=== PATIENT | female | born 1955 | race American Indian/Alaskan Native ===

== ENCOUNTER 2016-07-03 18:09 | Emergency (ER) | payer MEDICAID ==
--- NOTE | 2016-07-03 18:36 | Emergency Department Report ---
Chief Complaint: Chest Pain Stated Complaint: LEFT ARM/CHEST/THROAT PAIN Time Seen by Provider: 07/03/16 18:25 - HPI History of Present Illness: patient is a 60 y/o female with h/p HTN who presents due to left chest pain that radiates to the left shoulder and left arm. patient denies any SOB, patient states the pain has been constant since this morning. - ROS Review of Systems: gen: denies fever, chills pulm: no SOB, no dyspnea on exertion CV: left chest pain, no palpitations, no diaphoresis abd: no abodminal pain ENT: sorethroat - Exam Physical Exam: gen: well developed, well nourished pulm: clear bilateral lung sounds with good airway exchange. CV: regular HR and rhythm abd: no abdominal tenderness Neuro: alert and oriented x 3 MSE screening note: Focused history and physical exam performed. Due to findings the following was ordered:cardiac protocol initiated, EKG no STEMI ED Disposition for MSE Condition: Stable
[2016-07-03 19:11] LABS: Anion Gap 17 mmol/L; BUN/Creatinine Ratio 16.66; Blood Urea Nitrogen 10 mg/dL (7-17); Carbon Dioxide 26 mmol/L (22-30); Chloride 102.6 mmol/L (98-107); Glucose 93 mg/dL (65-100); Potassium 4.2 mmol/L (3.6-5.0); Sodium 141 mmol/L (137-145)
[2016-07-03 19:16] LABS: Basophils % (Auto) 0.7 % (0.0-1.8); Eosinophils % (Auto) 3.4 % (0.0-4.3); Hematocrit 36.4 % (30.3-42.9); Hemoglobin 11.4 gm/dl (10.1-14.3); Mean Corpuscular HGB Conc 31 % (30-34); Mean Corpuscular Volume 77 fl (79-97); Platelet Count 277 K/mm3 (140-440); Red Blood Count 4.75 M/mm3 (3.65-5.03); Red Cell Distribution Width 15.6 % (13.2-15.2)
[2016-07-03 19:24] LABS: Mean Corpuscular Hemoglobin 24 pg (28-32)
[2016-07-03] MEDS ORDERED: APRESOLINE IV ONE (20:26)
[2016-07-03] MEDS ORDERED: ALUM-MAG HYDROX-SIMETH 200-200-20MG/5ML PO ONE (20:26)
[2016-07-03] MEDS ORDERED: TORADOL IV ONE (20:26)
[2016-07-03] MEDS ORDERED: VALIUM IV ONE (20:26)
--- NOTE | 2016-07-03 20:28 | Emergency Department Report ---
ED General Adult HPI - General Chief complaint: Chest Pain Stated complaint: LEFT ARM/CHEST/THROAT PAIN Time Seen by Provider: 07/03/16 20:18 Source: patient, RN notes reviewed Mode of arrival: Ambulatory Limitations: No Limitations - History of Present Illness Initial comments: Primary care Dr.: Dr. Santiago Beverly Gastroenterology: Dr. Carlos Manuel Moyer Past medical history: Obesity, hypertension, obstructive sleep apnea, swallowing difficulty, probable esophageal strictures This is a 60-year-old female. She is previously unknown to me. She presents to the ER with difficulty swallowing. She reports that she swallowed a motrin pill the incorrect way this morning, and that she choked. She reports that she coughs so much that she pulled her left superior lateral chest wall. She also reports that she's been doing a lot of heavy lifting, and has some "spasms" in her left bicep and left forearm. The patient also reports chronic bilateral knee pain, saw her orthopedic pain specialist, and received an injection in her bilateral knees. The patient denies central chest pain, diaphoresis and he and/or different shortness of breath. There is no posterior leg pain. There is no posterior leg swelling. No recent trips greater than 4 hours. No recent hospitalizations. Me, the patient indicates that her left superior anterior chest wall discomfort does not ready to the back, arms or neck, there is no diaphoresis. -: Gradual Location: left, upper extremity Severity scale (0 -10): 7 Quality: aching Consistency: intermittent Improves with: rest Worsens with: eating Associated Symptoms: denies: shortness of breath, syncope - Related Data Previous Rx's Medication Instructions Recorded Last Taken Type Cyclobenzaprine HCl [Flexeril] 10 mg PO TID PRN #10 tablet 03/19/13 01/08/16 Rx HYDROcodone/APAP 5-325 [[place] 1 each PO Q6HR PRN #10 tablet 03/19/13 01/08/16 Rx 5-325 mg TAB] Ibuprofen [Motrin 800 MG tab] 800 mg PO TID #30 tablet 03/19/13 01/08/16 Rx Lisinopril [Zestril TAB] 10 mg PO QDAY #20 tablet 03/14/14 01/08/16 Rx Naproxen Sodium [Aleve TAB] 220 mg PO Q8H PRN #50 tablet 03/14/14 01/08/16 Rx oxyCODONE /ACETAMINOPHEN [Percocet 1 tab PO Q6HR PRN #7 tablet 03/14/14 Rx 5/325 mg] Allergies Allergy/AdvReac Type Severity Reaction Status Date / Time No Known Allergies Allergy Unverified 03/19/13 18:01 ED Review of Systems ROS: Stated complaint: LEFT ARM/CHEST/THROAT PAIN Other details as noted in HPI Constitutional: denies: fever, malaise ENT: throat pain. denies: congestion Respiratory: see HPI, cough Cardiovascular: chest pain (chest wall pain) Gastrointestinal: denies: vomiting Genitourinary: as per HPI Musculoskeletal: arthralgia, myalgia Skin: denies: lesions Neurological: denies: headache Psychiatric: as per HPI ED Past Medical Hx - Past Medical History Previous Medical History?: Yes Hx Hypertension: Yes Hx GERD: Yes Hx Sickle Cell Disease: Yes (trait) Hx Arthritis: Yes Hx Asthma: Yes (severe) Hx COPD: Yes Additional medical history: L shoulder injury. Sleep apnea, emily knee pain, Left rotator cuff needs to be repaired, Emily knee with steroid injections - Surgical History Past Surgical History?: Yes Additional Surgical History: R leg tendon surgery, Hysterectomy - Social History Smoking Status: Never Smoker Substance Use Type: Prescribed - Medications Home Medications: Home Medications Medication Instructions Recorded Confirmed Last Taken Type Cyclobenzaprine HCl [Flexeril] 10 mg PO TID PRN #10 tablet 03/19/13 01/08/16 Rx HYDROcodone/APAP 5-325 [[place] 1 each PO Q6HR PRN #10 tablet 03/19/13 01/08/16 Rx 5-325 mg TAB] Ibuprofen [Motrin 800 MG tab] 800 mg PO TID #30 tablet 03/19/13 01/08/16 Rx Lisinopril [Zestril TAB] 10 mg PO QDAY #20 tablet 03/14/14 01/08/16 Rx Naproxen Sodium [Aleve TAB] 220 mg PO Q8H PRN #50 tablet 03/14/14 01/08/16 Rx oxyCODONE /ACETAMINOPHEN [Percocet 1 tab PO Q6HR PRN #7 tablet 03/14/14 Rx 5/325 mg] ED Physical Exam - General Limitations: No Limitations General appearance: alert, in no apparent distress, obese - Head Head exam: Present: atraumatic, normocephalic - Eye Eye exam: Present: normal appearance, EOMI. Absent: nystagmus - ENT ENT exam: Present: normal exam, normal orophraynx, mucous membranes moist, normal external ear exam - Neck Neck exam: Present: normal inspection, full ROM. Absent: tenderness, meningismus - Respiratory Respiratory exam: Present: normal lung sounds bilaterally, chest wall tenderness. Absent: respiratory distress, wheezes, rales, rhonchi, stridor - Cardiovascular Cardiovascular Exam: Present: regular rate, normal rhythm, normal heart sounds. Absent: bradycardia, tachycardia, irregular rhythm, systolic murmur, diastolic murmur, rubs, gallop - GI/Abdominal GI/Abdominal exam: Present: soft, normal bowel sounds. Absent: distended, tenderness, guarding, rebound, rigid, pulsatile mass - Extremities Exam Extremities exam: Present: normal inspection, full ROM, normal capillary refill. Absent: tenderness, pedal edema, joint swelling, calf tenderness - Back Exam Back exam: Present: normal inspection, full ROM. Absent: tenderness, CVA tenderness (R), CVA tenderness (L), muscle spasm, paraspinal tenderness, vertebral tenderness - Neurological Exam Neurological exam: Present: alert, oriented X3, other (Extraocular movements intact. Tongue midline. No facial droop. Facial sensation intact to light touch in the V1, V2, V3 distribution bilaterally. 5 and 5 strength in 4 extremities.. Sensation is intact to light touch in 4 extremities.). Absent: motor sensory deficit - Psychiatric Psychiatric exam: Present: normal affect, normal mood - Skin Skin exam: Present: warm, dry, intact, normal color. Absent: rash ED Course Vital Signs 07/03/16 07/03/16 07/03/16 18:23 19:49 20:01 Temperature 98.4 F 97.9 F Pulse Rate 78 71 Respiratory 20 17 Rate Blood Pressure 216/96 Blood Pressure 218/81 [Right] O2 Sat by Pulse 98 100 100 Oximetry 07/03/16 07/03/16 07/03/16 21:00 21:20 22:51 Temperature 97.9 F Pulse Rate 74 82 74 Respiratory 18 20 Rate Blood Pressure 216/81 Blood Pressure 225/87 201/74 [Right] O2 Sat by Pulse 97 99 Oximetry - Reevaluation(s) Reevaluation #1: 07/03/16 21:29 Differential diagnosis: Muscle spasm, poorly controlled hypertension, dysphagia , esophageal stricture Assessment and plan: 60-year-old female with dysphagia, difficulty swallowing, left-sided chest wall pain, nonspecific arm spasm. There are no pulmonary embolus or DVT risk factors, low risk by well's criteria, low risk by STEPHEN score , low risk by heart score, EKG morphologically unremarkable 2, troponin negative 2. Elevated blood pressure is appreciated, the patient reports that her blood pressure always gets elevated in the context like this. She is treated symptomatically for pain and spasm, she is given Maalox, she has successfully completed a trial by mouth. I don't believe the patient requires admission to the hospital for acute coronary syndrome risk stratification. She is instructed to continue current outpatient medications, to follow-up with her card stripper and primary care doctor. Return precautions are reviewed. Reevaluation #2: 07/03/16 23:00 patient feels improved. Blood pressure somewhat improved. She is tolerating liquid feeds. Troponins negative 2. Elevated blood pressure is appreciated. It is asymptomatic. As for the [employer] clinical policy on asymptomatic hypertension: Do asymptomatic patients with elevated blood pressures benefit from rapid lowering of their blood pressure? Level A recommendations. None specified. Level B recommendations. (1) Initiating treatment for asymptomatic hypertension in the ED is not necessary when patients have follow-up; (2) Rapidly lowering blood pressure in asymptomatic patients in the ED is unnecessary and may be harmful in some patients; (3) When ED treatment for asymptomatic hypertension is initiated, blood pressure management should attempt to gradually lower blood pressure and should not be expected to be normalized during the initial ED visit. Level C recommendations. None specified. Range of motion is improved. The patient is educated and the need to follow up with her primary care doctor for better blood pressure control. Return precautions were extensively reviewed. ED Medical Decision Making - Lab Data Result diagrams: 07/03/16 18:41 07/03/16 18:41 Vital Signs 07/03/16 07/03/16 07/03/16 18:23 19:49 20:01 Temperature 98.4 F 97.9 F Pulse Rate 78 71 Respiratory 20 17 Rate Blood Pressure 216/96 Blood Pressure 218/81 [Right] O2 Sat by Pulse 98 100 100 Oximetry 07/03/16 21:20 Temperature Pulse Rate 82 Respiratory Rate Blood Pressure 216/81 Blood Pressure [Right] O2 Sat by Pulse Oximetry Lab Results 07/03/16 07/03/16 Range/Units 18:41 18:41 WBC 13.0 H (4.5-11.0) K/mm3 RBC 4.75 (3.65-5.03) M/mm3 Hgb 11.4 (10.1-14.3) gm/dl Hct 36.4 (30.3-42.9) % MCV 77 L (79-97) fl MCH 24 L (28-32) pg MCHC 31 (30-34) % RDW 15.6 H (13.2-15.2) % Plt Count 277 (140-440) K/mm3 Lymph % (Auto) 24.9 (13.4-35.0) % Cowley % (Auto) 5.8 (0.0-7.3) % Eos % (Auto) 3.4 (0.0-4.3) % Baso % (Auto) 0.7 (0.0-1.8) % Lymph # 3.2 (1.2-5.4) K/mm3 Cowley # 0.8 (0.0-0.8) K/mm3 Eos # 0.4 (0.0-0.4) K/mm3 Baso # 0.1 (0.0-0.1) K/mm3 Seg Neutrophils % 65.2 (40.0-70.0) % Seg Neutrophils # 8.5 H (1.8-7.7) K/mm3 Sodium 141 (137-145) mmol/L Potassium 4.2 (3.6-5.0) mmol/L Chloride 102.6 (98-107) mmol/L Carbon Dioxide 26 (22-30) mmol/L Anion Gap 17 mmol/L BUN 10 (7-17) mg/dL Creatinine 0.6 L (0.7-1.2) mg/dL Estimated GFR > 60 ml/min BUN/Creatinine Ratio 16.66 % Glucose 93 (65-100) mg/dL Calcium 9.0 (8.4-10.2) mg/dL Troponin T < 0.010 (0.00-0.029) ng/mL - EKG Data -: EKG Interpreted by [facility] EKG shows normal: sinus rhythm, axis, intervals, QRS complexes, ST-T waves - EKG Data 07/03/16 21:30 EKG #1: Normal sinus, 76 bpm, normal intervals, normal axis, not morphologically consistent with STEMI. EKG #2 demonstrates normal sinus, 72 bpm, normal intervals, normal axis, not morphologically consistent with STEMI. These EKGs are essentially unchanged from prior EKG from 03/19/2013. They're limited by motion artifact. - Radiology Data Radiology results: image reviewed interpreted by me: X-ray the chest is negative for acute disease. Critical care attestation.: If time is entered above; I have spent that time in minutes in the direct care of this critically ill patient, excluding procedure time. ED Disposition Clinical Impression: Dysphagia, Single episode of elevated blood pressure, Left arm pain Disposition: DISCHARGED TO HOME OR SELFCARE Is pt being admited?: No Does the pt Need Aspirin: No Condition: Good Instructions: Chronic Dysphagia (ED), Hypertension (ED) Additional Instructions: Discharge diagnosis: Elevated blood pressure, left arm pain, history of dysphagia Continue current outpatient medications. Follow-up with your primary care doctor, portrait studio photographer, within the next 3-5 days for further evaluation for elevated blood pressure. Long-term complications of hypertension and elevated blood pressure includes stroke, heart attack, disability, , paralysis, permanent loss of quality of life. Some of the local cardiologists include Dr. Nuñez and and Dr. Desai Follow-up with your card stripper within the next 2 weeks. Avoid heavy and spicy foods. Return to the ER right away with few pain, worsened pain, migration of pain, fevers or chills, nausea or vomiting, inability to tolerate liquid feeds, new, worsening or different symptoms. Referrals: PRIMARY CARE, [Referring] - 3-5 Days JOSE CARLOS NUÑEZ MD [Staff Physician] - 3-5 Days IQRA MACDONALD MD [Staff Physician] - 3-5 Days HOWARD WATTERS MD [Staff Physician] - 3-5 Days SANTIAGO BEVERLY MD [Primary Care Provider] - 3-5 Days
[2016-07-03 22:53] VITALS: BP 201/74
--- NOTE | 2016-07-04 08:19 | XRay Report ---
Chest 2 views. History: Chest pain. Findings: The heart is borderline in size with normal pulmonary vascularity. Lungs are clear. There is no pleural fluid. The bony structures are normal. Impression: No acute findings.
== END 2016-07-03 23:00 | disposition home or self-care (01) ==
LOC: ED 18:09
DX: R13.10 Dysphagia, unspecified (principal); M79.602 Pain in left arm; I10 Essential (primary) hypertension; K21.9 Gastro-esophageal reflux disease without esophagitis; M19.90 Unspecified osteoarthritis, unspecified site; J45.909 Unspecified asthma, uncomplicated; J44.9 Chronic obstructive pulmonary disease, unspecified; Z90.710 Acquired absence of both cervix and uterus
CPT/HCPCS: 36415; 71020; 80048; 84484; 85025; 93005; 93010; 96374; 96375; 99285; J0360; J1885; J3360

== ENCOUNTER 2018-04-22 10:21 | Emergency (ER) | payer MEDICAID ==
[2018-04-22 10:33] VITALS: BP 167/57
--- NOTE | 2018-04-22 11:40 | XRay Report ---
RIGHT FINGERS, 3 VIEWS History: Pain, possible foreign body in the index finger. Findings: Bone mineralization is normal. No acute osseous findings or joint pathology is detected. No radiopaque foreign body is identified in the index finger. Impression: No abnormality identified.
--- NOTE | 2018-04-22 12:00 | Emergency Department Report ---
ED Extremity Problem HPI - General Chief complaint: Extremity Problem,Nontraumatic Stated complaint: NERVE PAIN Time Seen by Provider: 04/22/18 11:11 Source: patient Mode of arrival: Ambulatory Limitations: No Limitations - History of Present Illness Initial comments: Patient is a 62-year-old black female with past medical history of diabetes who believes she had a foreign body of the skin of her right index finger approximately month ago. Patient used some sterilized SEWING needle to try to incise this area. Patient feels though she did not get out the foreign body. Patient states his skin is now healed and closed however she has pain with swelling around this area. Patient denies any fevers chills. Patient states the pain is 6 out of 10 in severity and is worse when she has direct contact of this area. Severity scale (0 -10): 6 - Related Data Previous Rx's Medication Instructions Recorded Last Taken Type Cyclobenzaprine HCl [Flexeril] 10 mg PO TID PRN #10 tablet 03/19/13 01/08/16 Rx HYDROcodone/APAP 5-325 [[place] 1 each PO Q6HR PRN #10 tablet 03/19/13 01/08/16 Rx 5-325 mg TAB] Ibuprofen [Motrin 800 MG tab] 800 mg PO TID #30 tablet 03/19/13 01/08/16 Rx Lisinopril [Zestril TAB] 10 mg PO QDAY #20 tablet 03/14/14 01/08/16 Rx Naproxen Sodium [Aleve TAB] 220 mg PO Q8H PRN #50 tablet 03/14/14 01/08/16 Rx oxyCODONE /ACETAMINOPHEN [Percocet 1 tab PO Q6HR PRN #7 tablet 03/14/14 01/08/16 Rx 5/325 mg] Clindamycin [Clindamycin CAP] 300 mg PO Q8H 7 Days cap 04/22/18 Unknown Rx HYDROcodone/APAP 5-325 [[place] 1 each PO Q4HR PRN #12 tablet 04/22/18 Unknown Rx 5/325] Allergies Allergy/AdvReac Type Severity Reaction Status Date / Time No Known Allergies Allergy Unverified 04/22/18 10:29 ED Review of Systems ROS: Stated complaint: NERVE PAIN Other details as noted in HPI Comment: All other systems reviewed and negative ED Past Medical Hx - Past Medical History Hx Hypertension: Yes Hx GERD: Yes Hx Sickle Cell Disease: Yes (trait) Hx Arthritis: Yes Hx Asthma: Yes (severe) Hx COPD: Yes Additional medical history: L shoulder injury. Sleep apnea, marcus knee pain, Left rotator cuff needs to be repaired, Marcus knee with steroid injections - Surgical History Additional Surgical History: R leg tendon surgery, Hysterectomy - Social History Smoking Status: Never Smoker Substance Use Type: None - Medications Home Medications: Home Medications Medication Instructions Recorded Confirmed Last Taken Type Cyclobenzaprine HCl [Flexeril] 10 mg PO TID PRN #10 tablet 03/19/13 01/08/16 Rx HYDROcodone/APAP 5-325 [[place] 1 each PO Q6HR PRN #10 tablet 03/19/13 01/08/16 Rx 5-325 mg TAB] Ibuprofen [Motrin 800 MG tab] 800 mg PO TID #30 tablet 03/19/13 01/08/16 Rx Lisinopril [Zestril TAB] 10 mg PO QDAY #20 tablet 03/14/14 01/08/16 Rx Naproxen Sodium [Aleve TAB] 220 mg PO Q8H PRN #50 tablet 03/14/14 01/08/16 Rx oxyCODONE /ACETAMINOPHEN [Percocet 1 tab PO Q6HR PRN #7 tablet 03/14/14 01/08/16 Rx 5/325 mg] Clindamycin [Clindamycin CAP] 300 mg PO Q8H 7 Days cap 04/22/18 Unknown Rx HYDROcodone/APAP 5-325 [[place] 1 each PO Q4HR PRN #12 tablet 04/22/18 Unknown Rx 5/325] ED Physical Exam - General Limitations: No Limitations General appearance: alert, in no apparent distress - Head Head exam: Present: atraumatic, normocephalic - Eye Eye exam: Present: normal appearance - ENT ENT exam: Present: mucous membranes moist - Neck Neck exam: Present: normal inspection - Respiratory Respiratory exam: Present: normal lung sounds bilaterally. Absent: respiratory distress - Cardiovascular Cardiovascular Exam: Present: regular rate, normal rhythm. Absent: systolic murmur, diastolic murmur, rubs, gallop - GI/Abdominal GI/Abdominal exam: Present: soft, normal bowel sounds - Extremities Exam Extremities exam: Present: normal inspection, tenderness (patient has some mild erythematous swelling to the right index finger distal tip.) - Back Exam Back exam: Present: normal inspection - Neurological Exam Neurological exam: Present: alert, oriented X3 - Psychiatric Psychiatric exam: Present: normal affect, normal mood - Skin Skin exam: Present: warm, dry, intact, normal color. Absent: rash ED Course Vital Signs 04/22/18 10:31 Temperature 97.4 F L Pulse Rate 81 Respiratory 16 Rate Blood Pressure 167/57 [Right] O2 Sat by Pulse 97 Oximetry ED Medical Decision Making - Radiology Data X-ray was negative for radiopaque foreign body. - Medical Decision Making Patient started on antibiotics for a possible early cellulitis secondary to poor healing after the patient tried to remove the foreign body. Patient no radiopaque foreign bodies are found on x-ray here. Patient started on antibiotics and pain meds. Critical care attestation.: If time is entered above; I have spent that time in minutes in the direct care of this critically ill patient, excluding procedure time. ED Disposition Clinical Impression: Cellulitis, finger Qualifiers: Laterality: right Qualified Code(s): L03.011 - Cellulitis of right finger Disposition: DC-01 TO HOME OR SELFCARE Is pt being admited?: No Does the pt Need Aspirin: No Condition: Stable Instructions: Cellulitis (ED) Referrals: DARIUS WALSH MD [Staff Physician] - 3-5 Days Time of Disposition: 12:00
== END 2018-04-22 12:04 | disposition home or self-care (01) ==
LOC: ED 10:21
DX: L03.011 Cellulitis of right finger (principal); I10 Essential (primary) hypertension; K21.9 Gastro-esophageal reflux disease without esophagitis; M19.90 Unspecified osteoarthritis, unspecified site; J44.9 Chronic obstructive pulmonary disease, unspecified; D57.3 Sickle-cell trait; Z90.710 Acquired absence of both cervix and uterus; Z79.899 Other long term (current) drug therapy
CPT/HCPCS: 99283

== ENCOUNTER 2018-07-29 17:42 | Emergency (ER) | payer MEDICAID ==
--- NOTE | 2018-07-29 18:20 | Emergency Department Report ---
Chief Complaint: Urogenital-Female Stated Complaint: CANT URINATE Time Seen by Provider: 07/29/18 18:17 - HPI History of Present Illness: This is a 62 y.o. F. that presents to the ER with pelvic pressure, urinary frequency, and urgency. PMH: DM, neuropathy, HTN - Exam Vital Signs: Vital Signs 07/29/18 18:16 Temperature 98.0 F Pulse Rate 67 Respiratory 20 Rate Blood Pressure 133/64 O2 Sat by Pulse 98 Oximetry MSE screening note: Focused history and physical exam performed. Due to findings the following was ordered: This initial assessment/diagnostic orders/clinical plan/treatment(s) is/are subject to change based on patient's health status, clinical progression and re- assessment by fellow clinical providers in the ED. Further treatment and workup at subsequent clinical providers discretion. Patient/guardians urged not to elope from the ED as their condition may be serious if not clinically assessed and managed. Initial orders include: 1- Patient sent to [facility] for further evaluation and treatment 2- Urinalysis ED Disposition for MSE Condition: Stable
[2018-07-29 18:55] LABS: Bilirubin,Urine NEG (Negative); Blood,Urine NEG (Negative); Color,Urine Yellow (Yellow); Mucus,Urine FEW /HPF; Protein,Urine <15 mg/dL mg/dL (Negative); Urobilinogen,Urine < 2.0 mg/dL (<2.0)
[2018-07-29] MEDS ORDERED: MACROBID PO ONE (22:36)
[2018-07-29] MEDS ORDERED: TYLENOL PO ONE (22:36)
[2018-07-29] MEDS ORDERED: PYRIDIUM PO ONE (22:39)
--- NOTE | 2018-07-29 22:40 | Emergency Department Report ---
ED Female HPI - General Chief complaint: Urogenital-Female Stated complaint: CANT URINATE Time Seen by Provider: 07/29/18 18:17 Source: patient Mode of arrival: Ambulatory Limitations: No Limitations - History of Present Illness Initial comments: Procedure 62-year-old -[place] female with history hypertension diabetes who presents for urinary retention placed urination as I have to P against urinate christa does note she also has no back pain no nausea vomiting no history of renal stones shortness of breath no chest pain MD Complaint: dysuria Onset/Timin -: days(s) Radiation: suprapubic Severity: moderate Severity scale (0 -10): 4 Quality: cramping Consistency: constant Improves with: none Worsens with: urination Are you Now?: No - Related Data Sexually active: No Previous Rx's Medication Instructions Recorded Last Taken Type Cyclobenzaprine HCl [Flexeril] 10 mg PO TID PRN #10 tablet 03/19/13 01/08/16 Rx HYDROcodone/APAP 5-325 [[place] 1 each PO Q6HR PRN #10 tablet 03/19/13 01/08/16 Rx 5-325 mg TAB] Ibuprofen [Motrin 800 MG tab] 800 mg PO TID #30 tablet 03/19/13 01/08/16 Rx Lisinopril [Zestril TAB] 10 mg PO QDAY #20 tablet 03/14/14 01/08/16 Rx Naproxen Sodium [Aleve TAB] 220 mg PO Q8H PRN #50 tablet 03/14/14 01/08/16 Rx oxyCODONE /ACETAMINOPHEN [Percocet 1 tab PO Q6HR PRN #7 tablet 03/14/14 01/08/16 Rx 5/325 mg] Clindamycin [Clindamycin CAP] 300 mg PO Q8H 7 Days cap 04/22/18 Unknown Rx HYDROcodone/APAP 5-325 [[place] 1 each PO Q4HR PRN #12 tablet 04/22/18 Unknown Rx 5/325] Acetaminophen 60 mg PO Q6H PRN #30 capsule 07/29/18 Unknown Rx Nitrofurantoin [place]/M-Cryst 100 mg PO BID 7 Days #14 capsule 07/29/18 Unknown Rx [Macrobid CAP] Phenazopyridine [Pyridium] 100 mg PO TID 2 Days #6 tab 07/29/18 Unknown Rx Allergies Allergy/AdvReac Type Severity Reaction Status Date / Time No Known Allergies Allergy Verified 07/29/18 17:46 ED Review of Systems ROS: Stated complaint: CANT URINATE Other details as noted in HPI Constitutional: denies: chills, fever Eyes: denies: eye pain, eye discharge, vision change ENT: denies: ear pain, throat pain Respiratory: denies: cough, shortness of breath, wheezing Cardiovascular: denies: chest pain, palpitations Endocrine: no symptoms reported Gastrointestinal: abdominal pain (superpubic pressure cramping ). denies: nausea, vomiting, diarrhea, constipation, hematemesis, melena, hematochezia Genitourinary: urgency, dysuria, frequency. denies: hematuria, discharge, abnormal menses, dyspareunia Musculoskeletal: denies: back pain, joint swelling, arthralgia Skin: denies: rash, lesions Neurological: denies: headache, weakness, paresthesias Psychiatric: denies: anxiety, depression Hematological/Lymphatic: denies: easy bleeding, easy bruising ED Past Medical Hx - Past Medical History Hx Hypertension: Yes Hx GERD: Yes Hx Sickle Cell Disease: Yes (trait) Hx Arthritis: Yes Hx Asthma: Yes Hx COPD: Yes Additional medical history: sleep apnea, neuropathy - Surgical History Additional Surgical History: R leg tendon surgery, Hysterectomy - Social History Smoking Status: Never Smoker Substance Use Type: None - Medications Home Medications: Home Medications Medication Instructions Recorded Confirmed Last Taken Type Cyclobenzaprine HCl [Flexeril] 10 mg PO TID PRN #10 tablet 03/19/13 01/08/16 Rx HYDROcodone/APAP 5-325 [[place] 1 each PO Q6HR PRN #10 tablet 03/19/13 01/08/16 Rx 5-325 mg TAB] Ibuprofen [Motrin 800 MG tab] 800 mg PO TID #30 tablet 03/19/13 01/08/16 Rx Lisinopril [Zestril TAB] 10 mg PO QDAY #20 tablet 03/14/14 01/08/16 Rx Naproxen Sodium [Aleve TAB] 220 mg PO Q8H PRN #50 tablet 03/14/14 01/08/16 Rx oxyCODONE /ACETAMINOPHEN [Percocet 1 tab PO Q6HR PRN #7 tablet 03/14/14 01/08/16 Rx 5/325 mg] Clindamycin [Clindamycin CAP] 300 mg PO Q8H 7 Days cap 04/22/18 Unknown Rx HYDROcodone/APAP 5-325 [[place] 1 each PO Q4HR PRN #12 tablet 04/22/18 Unknown Rx 5/325] Acetaminophen 60 mg PO Q6H PRN #30 capsule 07/29/18 Unknown Rx Nitrofurantoin [place]/M-Cryst 100 mg PO BID 7 Days #14 capsule 07/29/18 Unknown Rx [Macrobid CAP] Phenazopyridine [Pyridium] 100 mg PO TID 2 Days #6 tab 07/29/18 Unknown Rx ED Physical Exam - General Limitations: No Limitations General appearance: alert, in no apparent distress - Head Head exam: Present: atraumatic, normocephalic - Eye Eye exam: Present: normal appearance, PERRL, EOMI Pupils: Present: normal accommodation - ENT ENT exam: Present: mucous membranes moist - Neck Neck exam: Present: normal inspection, full ROM. Absent: lymphadenopathy, thyromegaly - Respiratory Respiratory exam: Present: normal lung sounds bilaterally. Absent: respiratory distress, wheezes, stridor, chest wall tenderness - Cardiovascular Cardiovascular Exam: Present: regular rate, normal rhythm, normal heart sounds. Absent: systolic murmur, diastolic murmur, rubs, gallop - GI/Abdominal GI/Abdominal exam: Present: soft, normal bowel sounds. Absent: distended, tenderness, guarding, rebound, rigid, bruit, hernia - Rectal Rectal exam: Present: deferred - Extremities Exam Extremities exam: Present: normal inspection. Absent: tenderness - Back Exam Back exam: Present: normal inspection, full ROM. Absent: tenderness, CVA tenderness (R), CVA tenderness (L), muscle spasm, rash noted - Neurological Exam Neurological exam: Present: alert, oriented X3, CN II-XII intact, normal gait - Psychiatric Psychiatric exam: Present: normal affect, normal mood - Skin Skin exam: Present: warm, dry, intact, normal color. Absent: rash ED Course Vital Signs 07/29/18 18:16 Temperature 98.0 F Pulse Rate 67 Respiratory 20 Rate Blood Pressure 133/64 O2 Sat by Pulse 98 Oximetry ED Medical Decision Making - Radiology Data Radiology results: report reviewed, image reviewed Ordering Physician: LORRIE RUBIO NP Date of Service: 07/29/18 Procedure(s): CT abdomen pelvis wo con Accession Number(s): [id number] cc: LORRIE RUBIO NP PROCEDURE: CT abdomen and pelvis without contrast. TECHNIQUE: Computerized axial tomography of the abdomen and pelvis was performed without intravenous contrast. This study is performed without intravascular contrast material and its sensitivity for abdominal and pelvic pathology, including neoplasms, inflammation, abscess, free fluid, thrombosis, arterial dissection and infarction, is reduced compared with a contrast enhanced study. CT DOSE LENGTH PRODUCT: 1580.8 mGycm HISTORY: Abdominal pain. COMPARISONS: None. FINDINGS: The lung bases are clear. There are no pleural effusions. The heart size is normal. The liver, pancreas and spleen are grossly normal. The gallbladder is present. There is no biliary dilatation. The adrenal glands are not enlarged. Both kidneys appear normal in size and configuration. The abdominal aorta has a normal caliber. There is no retroperitoneal adenopathy. The unopacified gastrointestinal tract is unremarkable. A normal appendix is visible. The bladder, uterus and adnexal regions are unremarkable. The regional skeleton appears intact. There is osteoarthritis involving the facet joints at L4-5. There is mild grade 1 spondylolisthesis at this level. There is a very small umbilical hernia consisting of fat. IMPRESSION: Facet joint arthritis at L4-5 with grade 1 spondylolisthesis. Small umbilical hernia containing fat. No evidence of acute disease in the abdomen or pelvis. This document is electronically signed by Omar Granger MD., Jul 29 2018 11:24:37 PM ET Transcribed By: MRM Dictated By: OMAR GRANGER MD Electronically Authenticated By: OMAR GRANGER MD Signed Date/Time: 07/29/182325 DD/ 01 TD/TT: 07/29/182301 - Medical Decision Making CT abd pelvis: no renal stones, bladder normal, noted for small umbilcal hernia, and L spine spondylithiasis UA: pos for leuk and wbc plan, tx for UTI ,plan: macrobid , pyridium , tylenol prn pain follow up with pcp in 2-3 days return to ed if symptoms worsen, pt verbalized agreement and understanding of discharge plan. Critical care attestation.: If time is entered above; I have spent that time in minutes in the direct care of this critically ill patient, excluding procedure time. ED Disposition Clinical Impression: Flank pain UTI (urinary tract infection) Qualifiers: Urinary tract infection type: acute cystitis Hematuria presence: without hematuria Qualified Code(s): N30.00 - Acute cystitis without hematuria Disposition: TO HOME OR SELFCARE Is pt being admited?: No Does the pt Need Aspirin: No Condition: Stable Instructions: Urinary Tract Infection in Women (ED), Flank Pain (ED), Phenazopyridine (By mouth) Prescriptions: Acetaminophen 60 mg PO Q6H PRN #30 capsule PRN Reason: pain Nitrofurantoin [place]/M-Cryst [Macrobid CAP] 100 mg PO BID 7 Days #14 capsule Phenazopyridine [Pyridium] 100 mg PO TID 2 Days #6 tab Referrals: SANTIAGO ESPARZA MD [Primary Care Provider] - 2-3 Days Forms: Work/School Release Form(ED) Time of Disposition: 23:58
--- NOTE | 2018-07-29 23:26 | Cat Scan Report ---
PROCEDURE: CT abdomen and pelvis without contrast. TECHNIQUE: Computerized axial tomography of the abdomen and pelvis was performed without intravenous contrast. This study is performed without intravascular contrast material and its sensitivity for ab dominal and pelvic pathology, including neoplasms, inflammation, abscess, free fluid, thrombosis, art erial dissection and infarction, is reduced compared with a contrast enhanced study. CT DOSE LENGTH PRODUCT: 1580.8 mGycm HISTORY: Abdominal pain. COMPARISONS: None. FINDINGS: The lung bases are clear. There are no pleural effusions. The heart size is normal. The liver, pancre as and spleen are grossly normal. The gallbladder is present. There is no biliary dilatation. The adr enal glands are not enlarged. Both kidneys appear normal in size and configuration. The abdominal aor ta has a normal caliber. There is no retroperitoneal adenopathy. The unopacified gastrointestinal tra ct is unremarkable. A normal appendix is visible. The bladder, uterus and adnexal regions are unremar kable. The regional skeleton appears intact. There is osteoarthritis involving the facet joints at L4 -5. There is mild grade 1 spondylolisthesis at this level. There is a very small umbilical hernia con sisting of fat. IMPRESSION: Facet joint arthritis at L4-5 with grade 1 spondylolisthesis. Small umbilical hernia con taining fat. No evidence of acute disease in the abdomen or pelvis. This document is electronically signed by Omar Rader MD., Jul 29 2018 11:24:37 PM ET
[2018-07-30 00:53] VITALS: BP 164/60
== END 2018-07-30 00:30 | disposition home or self-care (01) ==
LOC: ED 17:42
DX: N39.0 Urinary tract infection, site not specified (principal); K42.9 Umbilical hernia without obstruction or gangrene; I10 Essential (primary) hypertension; K21.9 Gastro-esophageal reflux disease without esophagitis; J44.9 Chronic obstructive pulmonary disease, unspecified; E11.40 Type 2 diabetes mellitus with diabetic neuropathy, unspecified; M19.90 Unspecified osteoarthritis, unspecified site; G47.30 Sleep apnea, unspecified; Z90.710 Acquired absence of both cervix and uterus
CPT/HCPCS: 74176; 81001; 99284

== ENCOUNTER 2018-09-09 02:12 | Emergency (ER) | payer MEDICAID ==
[2018-09-09] MEDS ORDERED: TYLENOL PO ONE (04:28)
[2018-09-09] MEDS ORDERED: TORADOL IV ONE (04:29)
--- NOTE | 2018-09-09 04:56 | XRay Report ---
CHEST PA AND LATERAL VIEWS INDICATION: MAIN: PT SD FLU LIKE SYMPTOMS X1-2 DAYS..JTS. COMPARISON: 07/03/2016. FINDINGS: Support devices: None. Heart: Within normal limits. Lungs/Pleura: No consolidation is seen. There is mild peribronchial cuffing which can be seen in the setting of lower airways disease. No pleural abnormality. IMPRESSION: 1. Mild peribronchial cuffing in both lungs can be seen in the setting of lower airways disease/bronc hiolitis. No consolidation. Signer Name: Daniel Sampson MD Signed: 09/09/2018 4:52 AM Workstation Name: [id number]
[2018-09-09 05:20] LABS: Basophils # (Auto) 0.1 K/mm3 (0.0-0.1); Basophils % (Auto) 0.4 % (0.0-1.8); Eosinophils # (Auto) 0.1 K/mm3 (0.0-0.4); Eosinophils % (Auto) 0.5 % (0.0-4.3); Hematocrit 38.2 % (30.3-42.9); Hemoglobin 12.2 gm/dl (10.1-14.3); Lymphocytes # (Auto) 1.3 K/mm3 (1.2-5.4); Lymphocytes % (Auto) 7.8 % (13.4-35.0); Mean Corpuscular HGB Conc 32 % (30-34); Mean Corpuscular Volume 76 fl (79-97); Monocytes # (Auto) 0.8 K/mm3 (0.0-0.8); Monocytes % (Auto) 4.8 % (0.0-7.3); Platelet Count 264 K/mm3 (140-440); Red Blood Count 5.01 M/mm3 (3.65-5.03); Red Cell Distribution Width 15.4 % (13.2-15.2)
[2018-09-09] MEDS ORDERED: NACL 0.9% 1000 ML 1,000 ML IV ONE (05:22)
[2018-09-09] MEDS ORDERED: ZITHROMAX PO ONE (05:36)
[2018-09-09] MEDS ORDERED: ROCEPHIN/NS 1 GM/50 ML 1 GM/50 ML BAG IV ONE (05:36)
[2018-09-09 05:47] LABS: Alanine Aminotransferase 13 units/L (7-56); Albumin 4.3 g/dL (3.9-5); BUN/Creatinine Ratio 15; Blood Urea Nitrogen 15 mg/dL (7-17); Calcium 9.4 mg/dL (8.4-10.2); Hemolysis Index 6
[2018-09-09 06:00] LABS: Bilirubin,Urine NEG (Negative); Blood,Urine MOD (Negative); Color,Urine Yellow (Yellow); Mucus,Urine FEW /HPF; Urobilinogen,Urine < 2.0 mg/dL (<2.0); WBC,Urine < 1.0 /HPF (0.0-6.0)
--- NOTE | 2018-09-09 06:12 | Emergency Department Report ---
ED General Adult HPI - General Chief complaint: Pain General Stated complaint: PAIN ALL OVER BODY/FEVER Time Seen by Provider: 09/09/18 04:15 Source: patient Mode of arrival: Wheelchair Limitations: No Limitations - History of Present Illness Initial comments: Patient is a 62-year-old -[place] female with a history of COPD, hypertension, chronic osteoarthritis, and GERD who presents to the ED, in no acute onset persistent diarrhea and diffuse body aches and pains with chills for the last 2 days. Patient denies dizziness, fever, sore throat, abdominal pain, chest pain, cough, sore throat, change in vision, shortness of breath, dysuria, urinary frequency and urgency, headache, neck pain or change in vision. Patient states that she has been taking [id number] Tylenol and/or ibuprofen as needed with no relief. MD Complaint: diffuse body aches, chills, flu like symptoms -: Gradual, days(s) (2) Location: head Radiation: non-radiation Severity scale (0 -10): 10 Quality: aching, sharp Consistency: constant Improves with: none Worsens with: none Associated Symptoms: denies other symptoms. denies: confusion, chest pain, cough, diaphoresis, fever/chills, headaches, loss of appetite, malaise, nausea/vomiting, shortness of breath, syncope, weakness Treatments Prior to Arrival: none, NSAID - Related Data Previous Rx's Medication Instructions Recorded Last Taken Type Cyclobenzaprine HCl [Flexeril] 10 mg PO TID PRN #10 tablet 03/19/13 01/08/16 Rx HYDROcodone/APAP 5-325 [[place] 1 each PO Q6HR PRN #10 tablet 03/19/13 01/08/16 Rx 5-325 mg TAB] Ibuprofen [Motrin 800 MG tab] 800 mg PO TID #30 tablet 03/19/13 01/08/16 Rx Lisinopril [Zestril TAB] 10 mg PO QDAY #20 tablet 03/14/14 01/08/16 Rx Naproxen Sodium [Aleve TAB] 220 mg PO Q8H PRN #50 tablet 03/14/14 01/08/16 Rx oxyCODONE /ACETAMINOPHEN [Percocet 1 tab PO Q6HR PRN #7 tablet 01/11/15 11/06/16 Rx 5/325 mg] Clindamycin [Clindamycin CAP] 300 mg PO Q8H 7 Days cap 04/22/18 Unknown Rx HYDROcodone/APAP 5-325 [[place] 1 each PO Q4HR PRN #12 tablet 04/22/18 Unknown Rx 5/325] Acetaminophen 60 mg PO Q6H PRN #30 capsule 07/29/18 Unknown Rx Nitrofurantoin [place]/M-Cryst 100 mg PO BID 7 Days #14 capsule 07/29/18 Unknown Rx [Macrobid CAP] Phenazopyridine [Pyridium] 100 mg PO TID 2 Days #6 tab 07/29/18 Unknown Rx Amoxicillin/Potassium Clav 1 each PO Q12H #20 tablet 09/09/18 Unknown Rx [Augmentin 875-125 Tablet] Ibuprofen [Motrin] 800 mg PO Q8HR PRN #20 tablet 09/09/18 Unknown Rx Ondansetron [Zofran Odt] 4 mg PO Q6HR PRN #15 tab.rapdis 09/09/18 Unknown Rx Allergies Allergy/AdvReac Type Severity Reaction Status Date / Time No Known Allergies Allergy Verified 07/29/18 17:46 ED Review of Systems ROS: Stated complaint: PAIN ALL OVER BODY/FEVER Other details as noted in HPI Constitutional: chills, malaise, weakness. denies: fever Eyes: denies: eye pain, eye discharge, vision change ENT: denies: ear pain, throat pain Respiratory: denies: cough, shortness of breath, wheezing Cardiovascular: denies: chest pain, palpitations, dyspnea on exertion, edema, syncope, paroxysmal nocturnal dyspnea Endocrine: no symptoms reported. denies: see HPI, excessive sweating, increased hunger, increased urine, unexplained weight gain, unexplained weight loss Gastrointestinal: denies: abdominal pain, nausea, diarrhea Genitourinary: denies: urgency, dysuria, discharge Musculoskeletal: back pain, arthralgia, myalgia. denies: joint swelling Skin: denies: rash, lesions Neurological: denies: headache, weakness, paresthesias Psychiatric: denies: anxiety, depression Hematological/Lymphatic: denies: easy bleeding, easy bruising ED Past Medical Hx - Past Medical History Previous Medical History?: Yes Hx Hypertension: Yes Hx GERD: Yes Hx Sickle Cell Disease: Yes (trait) Hx Arthritis: Yes Hx Asthma: Yes Hx COPD: Yes Additional medical history: sleep apnea, neuropathy - Surgical History Past Surgical History?: Yes Additional Surgical History: R leg tendon surgery, Hysterectomy - Social History Smoking Status: Never Smoker Substance Use Type: None - Medications Home Medications: Home Medications Medication Instructions Recorded Confirmed Last Taken Type Cyclobenzaprine HCl [Flexeril] 10 mg PO TID PRN #10 tablet 03/19/13 01/08/16 Rx HYDROcodone/APAP 5-325 [[place] 1 each PO Q6HR PRN #10 tablet 03/19/13 01/08/16 Rx 5-325 mg TAB] Ibuprofen [Motrin 800 MG tab] 800 mg PO TID #30 tablet 03/19/13 01/08/16 Rx Lisinopril [Zestril TAB] 10 mg PO QDAY #20 tablet 03/14/14 01/08/16 Rx Naproxen Sodium [Aleve TAB] 220 mg PO Q8H PRN #50 tablet 03/14/14 01/08/16 Rx oxyCODONE /ACETAMINOPHEN [Percocet 1 tab PO Q6HR PRN #7 tablet 03/14/14 01/08/16 Rx 5/325 mg] Clindamycin [Clindamycin CAP] 300 mg PO Q8H 7 Days cap 04/22/18 Unknown Rx HYDROcodone/APAP 5-325 [[place] 1 each PO Q4HR PRN #12 tablet 04/22/18 Unknown Rx 5/325] Acetaminophen 60 mg PO Q6H PRN #30 capsule 07/29/18 Unknown Rx Nitrofurantoin [place]/M-Cryst 100 mg PO BID 7 Days #14 capsule 07/29/18 Unknown Rx [Macrobid CAP] Phenazopyridine [Pyridium] 100 mg PO TID 2 Days #6 tab 07/29/18 Unknown Rx Amoxicillin/Potassium Clav 1 each PO Q12H #20 tablet 09/09/18 Unknown Rx [Augmentin 875-125 Tablet] Ibuprofen [Motrin] 800 mg PO Q8HR PRN #20 tablet 09/09/18 Unknown Rx Ondansetron [Zofran Odt] 4 mg PO Q6HR PRN #15 tab.rapdis 09/09/18 Unknown Rx ED Physical Exam - General Limitations: No Limitations General appearance: alert, in no apparent distress - Head Head exam: Present: atraumatic, normocephalic, normal inspection - Eye Eye exam: Present: normal appearance, PERRL, EOMI. Absent: scleral icterus Pupils: Present: normal accommodation - ENT ENT exam: Present: normal exam, normal orophraynx, mucous membranes moist, TM's normal bilaterally, normal external ear exam - Neck Neck exam: Present: normal inspection, full ROM - Respiratory Respiratory exam: Present: normal lung sounds bilaterally. Absent: respiratory distress, wheezes, rales, rhonchi, stridor, chest wall tenderness, accessory muscle use, decreased breath sounds, prolonged expiratory - Cardiovascular Cardiovascular Exam: Present: normal rhythm, tachycardia, normal heart sounds. Absent: systolic murmur, diastolic murmur, rubs, gallop - GI/Abdominal GI/Abdominal exam: Present: soft, normal bowel sounds. Absent: distended, tenderness, guarding, hyperactive bowel sounds, hypoactive bowel sounds, organ omegaly, mass, bruit, pulsatile mass - Rectal Rectal exam: Present: deferred - Extremities Exam Extremities exam: Present: normal inspection, full ROM, normal capillary refill - Back Exam Back exam: Present: normal inspection, full ROM, tenderness, muscle spasm. Absent: CVA tenderness (L) - Neurological Exam Neurological exam: Present: alert, oriented X3, CN II-XII intact, normal gait, reflexes normal - Psychiatric Psychiatric exam: Present: normal affect, normal mood - Skin Skin exam: Present: warm, dry, intact, normal color. Absent: rash ED Course Vital Signs 09/09/18 09/09/18 02:18 05:10 Temperature 98.3 F Pulse Rate 102 H Respiratory 20 20 Rate Blood Pressure 174/66 O2 Sat by Pulse 97 Oximetry - Reevaluation(s) Reevaluation #1: 09/09/18 06:16 Patient is alert and oriented 3 and is not in distress but tachycardic in triage and appears ill. Labs were drawn and chest x-ray ordered and urinalysis also ordered. Patient was treated for pain in the ED, and chest x-ray shows mild bronchial cuffing in both lungs which is slightly due to lower airway disease or bronchiolitis. No consolidation. Lab test results were reviewed and shows acute leukocytosis of 16,300. Urinalysis unremarkable, and a rapid influenza test is negative. Other lab test results were unremarkable. Patient was empirically treated for community acquired pneumonia based on the history and physical exam findings as well as clinical impression of the patient. Patient was discharged home on medications and advised to drink plenty of fluids and take medications, and follow-up in her primary care physician in 5-7 days for reevaluation or return to the ED immediately if symptoms get worse. 09/09/18 06:17 09/09/18 06:18 ED Medical Decision Making - Lab Data Result diagrams: 09/09/18 05:02 09/09/18 05:02 - Radiology Data Radiology results: report reviewed, image reviewed Chest x-ray shows mild bronchial cuffing in both lungs which is slightly due to lower airway disease or bronchiolitis. No consolidation. - Medical Decision Making Patient is alert and oriented 3 and is not in distress but tachycardic in triage and appears ill. Labs were drawn and chest x-ray ordered and urinalysis also ordered. Patient was treated for pain in the ED, and chest x-ray shows mild bronchial cuffing in both lungs which is slightly due to lower airway disease or bronchiolitis. No consolidation. Lab test results were reviewed and shows acute leukocytosis of 16,300. Urinalysis unremarkable, and a rapid influenza test is negative. Other lab test results were unremarkable. Patient was empirically treated for community acquired pneumonia based on the history and physical exam findings as well as clinical impression of the patient. Patient was discharged home on medications and advised to drink plenty of fluids and take medications, and follow-up in her primary care physician in 5-7 days for reevaluation or return to the ED immediately if symptoms get worse. - Differential Diagnosis flu like symptoms; Pneumonia, Acute UTI; Viral illness Critical care attestation.: If time is entered above; I have spent that time in minutes in the direct care of this critically ill patient, excluding procedure time. ED Disposition Clinical Impression: Flu-like symptoms Community acquired pneumonia Qualifiers: Laterality: unspecified laterality Qualified Code(s): J18.9 - Pneumonia, unspecified organism Disposition: DC-01 TO HOME OR SELFCARE Is pt being admited?: No Does the pt Need Aspirin: No Condition: Stable Instructions: Community-acquired Pneumonia (ED), Bacterial Pneumonia (ED) Additional Instructions: Take medications with food, drink plenty of fluids and follow-up with your primary care physician in 3-5 days for reevaluation. Return to the ED immediately if symptoms get worse. Prescriptions: Amoxicillin/Potassium Clav [Augmentin 875-125 Tablet] 1 each PO Q12H #20 tablet Ibuprofen [Motrin] 800 mg PO Q8HR PRN #20 tablet PRN Reason: Pain , Severe (7-10) Ondansetron [Zofran Odt] 4 mg PO Q6HR PRN #15 tab.rapdis PRN Reason: Nausea Referrals: SANTIAGO ESPARZA MD [Primary Care Provider] - 3-5 Days Time of Disposition: 06:12 Print Language: [id number]
[2018-09-09 06:52] VITALS: BP 166/72
== END 2018-09-09 06:40 | disposition home or self-care (01) ==
LOC: ED 02:12
DX: J18.9 Pneumonia, unspecified organism (principal); J44.9 Chronic obstructive pulmonary disease, unspecified; I10 Essential (primary) hypertension; K21.9 Gastro-esophageal reflux disease without esophagitis; G47.30 Sleep apnea, unspecified; Z90.710 Acquired absence of both cervix and uterus; Z79.1 Long term (current) use of non-steroidal anti-inflammatories (NSAID); Z79.899 Other long term (current) drug therapy
CPT/HCPCS: 36415; 71046; 80053; 81001; 85025; 87400; 96365; 96375; 99284; J0696; J1885; J7030